=== PATIENT | female | born 1985 | race Caucasian/White ===

== ENCOUNTER → 2018-01-09 14:42 | Outpatient (CLI) | payer OTHER, SELFPAY ==
--- NOTE | 2018-01-09 | DI.MRI.S_ITS ---
PROCEDURE: MR ANKLE RT WO CON INDICATIONS: LATERAL RIGHT ANKLE PAIN AND SWELLING TECHNIQUE: Noncontrast sagittal T1 spin echo and T2 fast spin echo with fat saturation, axial proton density fast spin echo and T2 fast spin echo with fat saturation, coronal T1 spin echo and T2 fast spin echo with fat saturation through the ankle/hindfoot. COMPARISON: None. FINDINGS: Image quality: Excellent. Bones and joints: Increased T2 and decreased T1 signal noted in the subchondral marrow of the lateral margin of the dome of the talus compatible with an osteochondral injury which appears stable in the current examination. No hindfoot coalitions. No osteochondral injuries of the talar dome. Large tibiotalar joint effusion. Medial structures: The posterior tibialis, flexor digitorum longus, and flexor hallucis longus tendons are intact. The posterior tibial neurovascular bundle appears normal within the tarsal tunnel, without extrinsic mass effect. The deep layer (anterior and posterior tibiotalar ligaments) and superficial layer (tibionavicular, tibiospring, and tibiocalcaneal ligaments) of the deltoid ligament appear normal. The spring ligament components (superomedial calcaneonavicular, medioplantar oblique calcaneonavicular, and inferoplantar longitudinal ligaments) are intact. Lateral structures: The anterior talofibular ligament is torn. The calcaneofibular, and posterior talofibular ligaments appear intact. The calcaneofibular ligament is slightly thickened with slightly increased internal signal compatible with a mild sprain. More superiorly, the anterior and posterior tibiofibular ligaments appear intact, as is the intermalleolar ligament. The tibiofibular syndesmosis is normal in width at 2 mm or less. The peroneus longus and brevis tendons demonstrate normal location and morphology. Adjacent bony peroneal tubercle and retrotrochlear prominence are normal in size. The sinus tarsi demonstrates normal fatty signal, without edema, fibrosis, or cyst formation. Visualized sinus tarsi components (cervical ligament, interosseous talocalcaneal ligament, roots of the inferior extensor retinaculum) appear normal. The calcaneonavicular and calcaneocuboid components of the bifurcate ligament appear intact. The dorsal calcaneocuboid ligament appears intact. Anterior structures: The tibialis anterior, extensor hallucis longus, and extensor digitorum longus tendons appear intact. The dorsal talonavicular ligament appears intact. Posterior and plantar structures: Achilles tendon is intact. Medial and lateral bands of the plantar fascia are of normal thickness. No abductor digiti quinti muscle atrophy to suggest Alberts neuropathy. IMPRESSION: 1. Talar dome osteochondral injury which appears stable in the current study. 2. Anterior talofibular ligament tear. 3. Mild calcaneofibular ligament sprain. 4. Large tibiotalar joint effusion. Dictated by: Amy Perez MD, PhD on 01/09/2018 at 17:49 Approved by: Amy Perez MD, PhD on 01/10/2018 at 5:54
== END ==
PROVIDERS: Visit Provider Family Medicine
DX: S93.411A Sprain of calcaneofibular ligament of right ankle, initial encounter (principal); S93.491A Sprain of other ligament of right ankle, initial encounter; M25.571 Pain in right ankle and joints of right foot; M25.471 Effusion, right ankle
CPT/HCPCS: 73721

== ENCOUNTER 2018-06-08 09:19 | Emergency (ER) | payer OTHER, SELFPAY ==
[2018-06-08 09:26] VITALS: BP 138/94; PULSE 93; RESP 99; TEMP 36.6; BMI 24.7
[2018-06-08 11:45] VITALS: BP 122/80; PULSE 72; RESP 14; O2SAT 99
--- NOTE | 2018-06-08 12:35 | ED_ITS ---
HPI - URI/Sore Throat General Chief Complaint: Upper Respiratory Symptoms Stated Complaint: SINUS PRESSURE/PAIN Time Seen by Provider: 06/08/18 11:40 Source: patient Mode of arrival: ambulatory Limitations: no limitations History of Present Illness HPI Narrative: This is a 33-year-old female who comes in with complaint of several weeks of sinus pressure, patient states she has also been having some pain in her right ear as well as fullness. Patient states that she has had some decreased hearing although it is just certain tones. Patient states that she has not had any fevers she is aware of. She feels like her face is sort of puffy in general. She has been having pressure particularly the maxillary area but also frontal and behind the eyes. She did have a CT scan that showed some thickening of the sphenoid sinuses. She was on Augmentin for 7 days prescribed by her primary care last month. She finished that about 2-3 weeks ago. She has continued to have symptoms since then. She states she has had a little bit of nasal congestion but not significant. She always has postnasal drip. She has not had any cough no chest pain, no shortness of breath. No nausea, no vomiting no GI or urinary symptoms. She has an appointment set up with ENT for next week after the holidays. She has had chronic issues with environmental allergies. She also was on Afrin for about a week while she was taking Augmentin. She takes Claritin daily, she has been using Sudafed or 6 with Sudafed in it, she has also done nasal rinses without any resolution of symptoms. Related Data Home Medications Medication Instructions Recorded Confirmed cetirizine-pseudoephedrine 1 tab PO Q12H 06/08/18 06/08/18 [Zyrtec-D] loratadine 10 mg PO DAILY 06/08/18 06/08/18 Previous Rx's Medication Instructions Recorded doxycycline hyclate 100 mg PO BID #14 cap 06/08/18 Allergies Allergy/AdvReac Type Severity Reaction Status Date / Time eucalyptus Allergy Intermediate Gastrointestinal Verified 06/08/18 09:29 Upset levofloxacin [From Levaquin] Allergy Intermediate Rash Verified 06/08/18 09:29 Review of Systems Review of Systems All systems reviewed & are unremarkable except as noted in HPI and below Constitutional Denies fever(s) and Reports headache(s) Eyes Denies change in vision ENT Ears, Nose, Mouth, and Throat: Reports abnormal hearing (right ear), Denies change in voice, Denies dental pain, Reports vertigo (when lays down), Denies ear discharge, Reports otalgia (right ear), Reports facial pain, Reports headache(s), Denies hoarseness, Reports nasal congestion, Reports post nasal drip, Reports sinus pain and Reports sinus pressure Cardiovascular Denies chest pain and Denies dyspnea Respiratory Denies cough and Denies dyspnea Gastrointestinal Gastrointestinal: Denies nausea and Denies vomiting Integumentary/Breasts Reports erythema and Denies rash Neurologic Reports abnormal hearing (right ear), Reports vertigo (when lays down) and Reports headache(s) [facility] Social History Smoking Status: Never smoker Exam Narrative Exam Narrative: GEN: well nourished, well appearing female, alert and oriented x 3, patient appears to be in mild distress. HEENT: Atraumatic, pupils are equal round reactive to light, extraocular movements are intact, nares are clear, right TM shows opacification with fluid, there is no erythema, patient states she has some mild pain with touch of the ear. Left TM shows very minimal fluid, no bulge, no erythema. conjunctival pallor. Throat is clear without any exudates, erythema, tonsillar enlargement or uvular deviation, patient does have some cobblestoning consistent with postnasal drip. No lymphadenopathy noted. Patient does not have any tenderness with palpation of the sinuses. She does look sort of puffy generalized in her face but does not have any swelling of the face that is localized, no fluctuance , no abscesses. HEART: Regular rate and rhythm without murmur, clicks, rubs. LUNGS:Lungs clear to auscultation, no wheezes, rales, crackles, chest moves symmetrically ABD:bowel sounds normal, soft, non-tender, no guarding, rebound, rigidity, no masses noted, no hepatosplenomegaly MSCL: Non-tender, no muscle atrophy, muscles strength 5/5 upper and lower extremities, full range of motion, normal gait NEURO:CN 2-12 intact, sensation normal Initial Vital Signs Initial Vital Signs: Vital Signs Temperature 97.8 F 06/08/18 09:26 Pulse Rate 93 H 06/08/18 09:26 Respiratory Rate 99 H 06/08/18 09:26 Blood Pressure 138/94 H 06/08/18 09:26 Course Vital Signs - 8 hr 06/08/18 09:26 06/08/18 11:45 Temperature 97.8 F Pulse Rate 93 H 72 Respiratory Rate 99 H 14 Blood Pressure 138/94 H Blood Pressure [Left Arm] 122/80 Pulse Oximetry 99 MDM - URI/Sore Throat MDM Narrative Medical decision making narrative: Patient did have a CT that did show some changes to the sphenoid sinus with thickening, this was an outpatient CT scan done about a month ago. She was on Augmentin although not for the typical full course of 10-14 days. She has not had fevers but is not having any improvement after several weeks. She has been doing the appropriate measures with antihistamines, decongestants, nasal rinses and Flonase. She has follow-up with ENT but not for another week and a half. I discussed will give her prescription for antibiotics over the holidays but did recommend trying stronger antihistamine such as Benadryl. She also did use Afrin for about a week and we discussed that people often get rebound congestion which may be part of the issue. This will be something that takes time to resolve. Discharge Plan Departure Patient Disposition: Home Clinical Impression: Sinusitis Discharge Date/Time: 06/08/18 12:14 Interventions: ED Discharge Assessment Last Done: 06/08/18 12:13 Instructions: DI for Sinusitis Activity Restrictions/Additional Instructions: Follow up at your appointment with ENT next week. Continue claritin daily, flonase and decongestants such as psuedofed. You may use benadryl 1-2 tabs every 8 hours instead of claritin for antihistamine. Do not use Afrin until cleared by ENT (you should not use more than 48 hours in a row or you will get rebound congestion). Take medications as prescribed. Return to ER for fevers greater than 100.4F, new swelling of the face, new redness, sudden decrease in hearing, vision changes, sudden severe headaches or other new or concerning symptoms. Prescriptions: New doxycycline hyclate 100 mg capsule 100 mg PO BID Qty: 14 RF: 0 No Action cetirizine-pseudoephedrine [Zyrtec-D] 5-120 mg Tablet Extended Release 12 Hr 1 tab PO Q12H RF: 0 loratadine 10 mg tablet 10 mg PO DAILY RF: 0
== END 2018-06-08 12:14 | disposition home or self-care (01) ==
PROVIDERS: Emergency Provider Emergency Medicine
DX: J32.9 Chronic sinusitis, unspecified (principal)
CPT/HCPCS: 99282

== ENCOUNTER 2018-10-10 12:23 | Emergency (ER) | payer OTHER, SELFPAY ==
[2018-10-10 12:30] VITALS: BP 127/79; PULSE 79; RESP 16; TEMP 36.6; O2SAT 100; BMI 23.9
--- NOTE | 2018-10-10 12:38 | ED_ITS ---
HPI - Abdominal Pain <ELIS Garg-BC - Last Filed: 10/10/18 15:27> General Chief Complaint: Abdominal Pain Stated Complaint: pain on right side Time Seen by Provider: 10/10/18 12:28 Source: patient Mode of arrival: ambulatory Limitations: no limitations History of Present Illness HPI narrative: The patient is a 33-year-old female nonsmoker with history of seasonal allergies who presents with a chief complaint of right side pain for 3 days. She states she thought she pulled a muscle, but then the pain started radiating around to the right side of her abdomen. She denies any objective dysuria urgency or frequency but does complain of some discomfort after she urinates. She denies any fevers chills nausea vomiting or diarrhea. Last bowel movement was yesterday. She has not taken anything for the pain or let her primary care physician know about her pain. she does complain of overall malaise and not feeling well, lack of appetite. She denies any vaginal discharge or irregular vaginal bleeding. She denies possibility of does not have any sexually transmitted infection concerns. She has not taken anything for pain or discomfort today. Related Data Home Medications Medication Instructions Recorded Confirmed amitriptyline 25 mg PO DAILY 10/10/18 drospirenone-ethinyl estradiol 1 tab PO DAILY 10/10/18 10/10/18 [Marta (28)] loratadine 10 mg PO DAILY 10/10/18 10/10/18 Allergies Allergy/AdvReac Type Severity Reaction Status Date / Time eucalyptus Allergy Intermediate Gastrointestinal Verified 06/08/18 09:29 Upset levofloxacin [From Levaquin] Allergy Intermediate Rash Verified 06/08/18 09:29 Review of Systems <MIKEY Garg - Last Filed: 10/10/18 15:27> Review of Systems GENERAL: Denies chills, fatigue, malaise, fever, sweats. HEENT: Denies sinus pain, ear pain, sore throat, difficulty swallowing, dizziness. RESPIRATORY: Denies dyspnea, cough, wheezing, hemoptysis, sputum. CARDIOVASCULAR: Denies chest pain, palpitations, orthopnea, edema, GASTROINTESTINAL: See HPI : See HPI MUSCULOSKELETAL: denies weakness, joint pain, or bony pain SKIN: Denies rash, skin lesions, or other NEUROLOGIC: Denies weakness, headache, numbness, change in speech, confusion, seizures, incoordination. PSYCHIATRIC: No concerning psychosocial issues. 12 point review of systems is negative except for those stated above PFSH <SARIAH Garg - Last Filed: 10/10/18 15:27> Medical History (Updated 10/10/18 @ 14:38 by SARIAH Garg) Seasonal allergies (Acute) Social History Smoking Status: Never smoker Social History Smoking Status: Never smoker Exam <SARIAH Garg - Last Filed: 10/10/18 15:27> Narrative Exam Narrative: GENERAL: This is a well-nourished, well-developed patient, in no acute distress HEAD: Atraumatic. Normocephalic. No temporal or scalp tenderness. EYES: Pupils equal round and reactive. Extraocular motions intact. No scleral icterus. No injection or drainage. ENT: Nose without bleeding, purulent drainage or septal hematoma. Throat without erythema, tonsillar hypertrophy or exudate. Uvula midline. Airway patent. NECK: Trachea midline. No JVD or lymphadenopathy. Supple, nontender, no meningeal signs. CARDIOVASCULAR: Regular rate and rhythm without murmurs, gallops, or rubs. RESPIRATORY: Clear to auscultation. Breath sounds equal bilaterally. No wheezes, rales, or rhonchi. No cough. No increased respiratory effort. No accessory muscle use. GASTROINTESTINAL: Abdomen soft, nondistended. No hepato-splenomegaly, or pal pable masses. No guarding. active bowel sounds all 4 quadrants. Pain to palpation palpation of right quadrants EXTREMITIES: No clubbing, cyanosis, or edema. No joint tenderness, effusion, or edema noted. BACK: Nontender without deformity or crepitance. No flank tenderness. no CVA tenderness bilaterally. NEURO: AOx3. SKIN: No rash or erythema. Initial Vital Signs Initial Vital Signs: Vital Signs Temperature 97.8 F 10/10/18 12:30 Pulse Rate 79 10/10/18 12:30 Respiratory Rate 16 10/10/18 12:30 Blood Pressure 127/79 10/10/18 12:30 Pulse Oximetry 100 10/10/18 12:30 <Ivy Fuentes DO - Last Filed: 10/13/18 12:53> Initial Vital Signs Initial Vital Signs: Vital Signs Temperature 97.8 F 10/10/18 12:30 Pulse Rate 79 10/10/18 12:30 Respiratory Rate 16 10/10/18 12:30 Blood Pressure 127/79 10/10/18 12:30 Pulse Oximetry 100 10/10/18 12:30 Course <SARIAH Garg - Last Filed: 10/10/18 15:27> Orders Ordered: Discontinued Medications Sodium Chloride (Normal Saline 0.9%) 1,000 mls @ 1,000 mls/hr IV BOLUS ONE Stop: 10/10/18 14:04 Last Infusion: 10/10/18 15:00 Dose: 0 mls/hr Admin: 10/10/18 13:55 Dose: 1,000 mls/hr Ketorolac Tromethamine (Toradol) 30 mg IV NOW ONE Stop: 10/10/18 14:31 Last Admin: 10/10/18 14:34 Dose: 30 mg Vital Signs - 8 hr 10/10/18 12:30 10/10/18 14:31 Temperature 97.8 F Pulse Rate 79 59 L Respiratory Rate 16 16 Blood Pressure 127/79 Blood Pressure [Left Arm] 107/67 Pulse Oximetry 100 100 <Ivy Fuentes DO - Last Filed: 10/13/18 12:53> Orders Ordered: Discontinued Medications Sodium Chloride (Normal Saline 0.9%) 1,000 mls @ 1,000 mls/hr IV BOLUS ONE Stop: 10/10/18 14:04 Last Infusion: 10/10/18 15:00 Dose: 0 mls/hr Admin: 10/10/18 13:55 Dose: 1,000 mls/hr Ketorolac Tromethamine (Toradol) 30 mg IV NOW ONE Stop: 10/10/18 14:31 Last Admin: 10/10/18 14:34 Dose: 30 mg Vital Signs - 8 hr 10/10/18 12:30 10/10/18 14:31 Temperature 97.8 F Pulse Rate 79 59 L Respiratory Rate 16 16 Blood Pressure 127/79 Blood Pressure [Left Arm] 107/67 Pulse Oximetry 100 100 MDM - Abdominal Pain <SARIAH Garg - Last Filed: 10/10/18 15:27> Lab Data Result diagrams: 10/10/18 13:05 10/10/18 13:05 Lab Results 10/10/18 10/10/18 10/10/18 Range/Units 12:45 13:05 13:05 WBC 5.1 (4.5-11.0) X10^3/uL RBC 4.62 (4.0-5.2) X10^6/uL Hgb 13.0 (12.0-16.0) g/dL Hct 37.7 (36-46) % MCV 81.6 (80-100) fL MCH 28.2 (26-34) PG MCHC 34.6 (30-36) % RDW 13.7 (11.6-14.8) % Plt Count 220 (150-400) X10^3/uL Neut % (Auto) 61.9 (50-75) % Lymph % (Auto) 32.1 (25-40) % [place] % (Auto) 5.3 (3-14) % Eos % (Auto) 0.2 L (2-4) % Baso % (Auto) 0.5 (0-2) % Neut # (Auto) 3200 (1016-4106) /uL Lymph # (Auto) 1600 (1062-3391) /uL [place] # (Auto) 300 (0-900) /uL Eos # (Auto) 0 (0-450) /uL Baso # (Auto) 0 (0-100) /uL Sodium 139 (137-145) mmol/L Potassium 4.0 (3.4-5.1) mmol/L Chloride 103 (98-107) mmol/L Carbon Dioxide 27 (22-32) mmol/L BUN 13 (7-17) mg/dL Creatinine 0.80 (0.52-1.04) mg/dL Estimated GFR > 60.0 (>60) mL/min BUN/Creatinine Ratio 16.3 (6-22) Glucose 101 H (70-100) mg/dL Calcium 9.5 (8.4-10.2) mg/dL Total Bilirubin 0.3 (0.2-1.3) mg/dL AST 22 (14-36) IU/L ALT 18 (9-52) IU/L Alkaline Phosphatase 46 (38-126) U/L Total Protein 7.7 (6.3-8.2) g/dL Albumin 4.5 (3.5-5.0) g/dL Globulin 3.2 (1.7-4.1) g/dL Albumin/Globulin Ratio 1.4 (1.0-2.8) Amylase 77 (30-110) U/L Lipase 111 (23-300) U/L Urine RBC 0-1/hpf (0-5/HPF) Urine WBC 0-1/hpf (0-5/HPF) Ur Squamous Epith Cells 0-1 /hpf (0-5/HPF) Urine Bacteria None seen (None) Urine Mucus 1+ H (Negative) Ur Culture Indicated? Cult not indicated Point of care testing: Point of Care Testing Test Results Negative Urine Dip Bedside Urine Glucose Negative Bedside Urine Bilirubin - Negative Bedside Urine Ketone - Negative Urine Specific [place] 1.025 Bedside Urine Occult Blood - Negative Bedside Urine pH 6.0 Bedside Urine Protein +/- 15 Bedside Urine Urobilinogen - Negative Bedside Urine Nitrite - Negative Bedside Urine Leukocytes - Negative Esterase Imaging Data US - abdomen: Radiologist's impression: [place] [address] Ultrasound Report Signed Patient: Zina Neely EMR#: [id number] : 1985Acct:[id number] Age/Sex: 33 / FDate of Service: 10/10/18 Loc: ED Accession Number: [id number] Procedure: US pelvic complete Ordering Provider: Ayana Salinas [facility]- PROCEDURE: US PELVIC COMPLETE INDICATIONS: RIGHT LOWER QUADRANT PAIN TECHNIQUE: Real-time scanning was performed of the pelvic organs, with image documentation. Additional endovaginal scanning was necessary due to incomplete visualization of the adnexal and endometrial structures by transabdominal scanning. COMPARISON: None. FINDINGS: Transabdominal scanning: Limited scanning through the kidneys shows no hydronephrosis. No pathologic free abdominal or pelvic fluid. Endovaginal scanning: Uterus: Uterus is normal in size at 8.6 x 2.7 x 4.4 cm. The endometrium measures 4 mm in combined thickness. Endometrial has a trilaminar appearance. No focal m yometrial lesions are evident. The cervix is within normal limits. Ovaries: Both ovaries are normal in size without cystic or solid mass. Subcentimeter follicles are present bilaterally. The right ovary measures 3.2 x 1.6 x 1.9 cm. The left ovary measures 2.8 x 1.7 x 1.9 cm. IMPRESSION: Uterus and ovaries are within normal limits. Dictated by: Dexter Santana M.D. on 10/10/2018 at 12:48 Approved by: Dexter Santana M.D. on 10/10/2018 at 12:50 [facility] Narrative Medical decision making narrative: The patient is a 33-year-old female who presents with right flank and abdominal pain. she has a normal UA, normal CBC, normal CMP lipase and amylase. She does not have an acute exam. Her pelvic ult rasound came back within normal limits with no evidence of ovarian cyst or torsion. We did discuss the possibility of appendicitis, but the patient is afebrile, not nauseous and does not have an elevated white blood cell count. She has been tolerating oral intake this morning. I discussed at length follow up with primary care provider as well as return precautions of fever, inability keep down fluids etc. Patient stated understanding of return precautions and states understanding of following up with primary care provider. Patient has no questions or concerns upon discharge. She was given some Toradol in the emergency department for pain, but declined anything else. <Ivy Fuentes, DO - Last Filed: 10/13/18 12:53> Lab Data Lab Results 10/10/18 10/10/18 10/10/18 Range/Units 12:45 13:05 13:05 WBC 5.1 (4.5-11.0) X10^3/uL RBC 4.62 (4.0-5.2) X10^6/uL Hgb 13.0 (12.0-16.0) g/dL Hct 37.7 (36-46) % MCV 81.6 (80-100) fL MCH 28.2 (26-34) PG MCHC 34.6 (30-36) % RDW 13.7 (11.6-14.8) % Plt Count 220 (150-400) X10^3/uL Neut % (Auto) 61.9 (50-75) % Lymph % (Auto) 32.1 (25-40) % [place] % (Auto) 5.3 (3-14) % Eos % (Auto) 0.2 L (2-4) % Baso % (Auto) 0.5 (0-2) % Neut # (Auto) 3200 (4736-0313) /uL Lymph # (Auto) 1600 (8860-2667) /uL [place] # (Auto) 300 (0-900) /uL Eos # (Auto) 0 (0-450) /uL Baso # (Auto) 0 (0-100) /uL Sodium 139 (137-145) mmol/L Potassium 4.0 (3.4-5.1) mmol/L Chloride 103 (98-107) mmol/L Carbon Dioxide 27 (22-32) mmol/L BUN 13 (7-17) mg/dL Creatinine 0.80 (0.52-1.04) mg/dL Estimated GFR > 60.0 (>60) mL/min BUN/Creatinine Ratio 16.3 (6-22) Glucose 101 H (70-100) mg/dL Calcium 9.5 (8.4-10.2) mg/dL Total Bilirubin 0.3 (0.2-1.3) mg/dL AST 22 (14-36) IU/L ALT 18 (9-52) IU/L Alkaline Phosphatase 46 (38-126) U/L Total Protein 7.7 (6.3-8.2) g/dL Albumin 4.5 (3.5-5.0) g/dL Globulin 3.2 (1.7-4.1) g/dL Albumin/Globulin Ratio 1.4 (1.0-2.8) Amylase 77 (30-110) U/L Lipase 111 (23-300) U/L Urine RBC 0-1/hpf (0-5/HPF) Urine WBC 0-1/hpf (0-5/HPF) Ur Squamous Epith Cells 0-1 /hpf (0-5/HPF) Urine Bacteria None seen (None) Urine Mucus 1+ H (Negative) Ur Culture Indicated? Cult not indicated Point of care testing: Point of Care Testing Test Results Negative Urine Dip Bedside Urine Glucose Negative Bedside Urine Bilirubin - Negative Bedside Urine Ketone - Negative Urine Specific [place] 1.025 Bedside Urine Occult Blood - Negative Bedside Urine pH 6.0 Bedside Urine Protein +/- 15 Bedside Urine Urobilinogen - Negative Bedside Urine Nitrite - Negative Bedside Urine Leukocytes - Negative Esterase Discharge Plan Departure Patient Disposition: Home Clinical Impression: Flank pain Abdominal pain Qualifiers: Abdominal location: generalized Qualified Code(s): R10.84 - Generalized abdominal pain Discharge Date/Time: 10/10/18 15:00 Interventions: ED Discharge Assessment Last Done: 10/10/18 15:00 Activity Restrictions/Additional Instructions: All of your lab work and urinalysis came back well today, as did your pelvic ultrasound. There is no evidence of ovarian cysts or torsion on her ultrasound. You do not have any elevated white blood cell count or fever, which can indicate appendicitis. Please try [id number] remedies including [id number] medications as needed and able and heat. Please do not take any ibuprofen for 6-8 hours after the Toradol injection in the emergency department. Please follow up with primary care provider soon as possible. Come back to emergency department for sudden worsening uncontrolled pain, inability keep down fluids, or fever with abdominal pain. come back to the emergency department for any acute concerns. Prescriptions: No Action amitriptyline 25 mg tablet 25 mg PO DAILY RF: 0 drospirenone-ethinyl estradiol [Marta (28)] 3-0.03 mg tablet 1 tab PO DAILY RF: 0 loratadine 10 mg tablet 10 mg PO DAILY RF: 0 Referrals: Carolyn Peres DO [Primary Care Provider] - <Ivy Fuentes DO - Last Filed: 10/13/18 12:53> Cosign ED Attending Linda Attestation: I was immediately available in the department for consultation. Documentation has been reviewed. I agree with assessment and plan.
--- NOTE | 2018-10-10 13:00 | DI.US.S_ITS ---
PROCEDURE: US PELVIC COMPLETE INDICATIONS: RIGHT LOWER QUADRANT PAIN TECHNIQUE: Real-time scanning was performed of the pelvic organs, with image documentation. Additional endovaginal scanning was necessary due to incomplete visualization of the adnexal and endometrial structures by transabdominal scanning. COMPARISON: None. FINDINGS: Transabdominal scanning: Limited scanning through the kidneys shows no hydronephrosis. No pathologic free abdominal or pelvic fluid. Endovaginal scanning: Uterus: Uterus is normal in size at 8.6 x 2.7 x 4.4 cm. The endometrium measures 4 mm in combined thickness. Endometrial has a trilaminar appearance. No focal myometrial lesions are evident. The cervix is within normal limits. Ovaries: Both ovaries are normal in size without cystic or solid mass. Subcentimeter follicles are present bilaterally. The right ovary measures 3.2 x 1.6 x 1.9 cm. The left ovary measures 2.8 x 1.7 x 1.9 cm. IMPRESSION: Uterus and ovaries are within normal limits. Dictated by: Dexter Santana M.D. on 10/10/2018 at 12:48 Approved by: Dexter Santana M.D. on 10/10/2018 at 12:50
[2018-10-10 13:01] LABS: Bacteria Urine None Seen
[2018-10-10 13:12] LABS: Add Manual Diff / Slide Review NO; Basophils Absolute Auto 0 /uL (0-100); Basophils Percent Auto 0.5 % (0-2); Eosinophils Absolute Auto 0 /uL (0-450); Eosinophils Percent Auto 0.2 % (2-4); Hematocrit 37.7 % (36-46); Lymphocytes Absolute Auto 1600 /uL (1100-4500); Lymphocytes Percent Auto 32.1 % (25-40); Mean Corpuscular HGB Conc 34.6 % (30-36); Mean Corpuscular Hemoglobin 28.2 PG (26-34); Mean Corpuscular Volume 81.6 fL (80-100); Monocytes Absolute Auto 300 /uL (0-900); Monocytes Percent Auto 5.3 % (3-14); Neutrophils Absolute Auto 3200 /uL (1500-7000); Neutrophils Percent Auto 61.9 % (50-75); Platelet Count 220 X10^3/uL (150-400); Red Blood Cell Count 4.62 X10^6/uL (4.0-5.2); Red Cell Distribution Width 13.7 % (11.6-14.8); White Blood Cell Count 5.1 X10^3/uL (4.5-11.0)
[2018-10-10 13:15] LABS: RBC Urine 0-1/HPF (0-5/HPF); Squamous Epithelial Cell Urine 0-1 /HPF (0-5/HPF); WBC Urine 0-1/HPF (0-5/HPF)
[2018-10-10 13:16] LABS: Culture Indicated Urine Cult Not Indicated; Mucus Urine 1+ (Negative)
[2018-10-10 13:34] LABS: Alanine Aminotransferase 18 IU/L (9-52); Albumin 4.5 g/dL (3.5-5.0); Albumin Globulin Ratio 1.4 (1.0-2.8); Alkaline Phosphatase 46 U/L (38-126); Amylase 77 U/L (30-110); Aspartate Aminotransferase 22 IU/L (14-36); BUN Creatinine Ratio 16.3 (6-22); Bilirubin Total 0.3 mg/dL (0.2-1.3); Blood Urea Nitrogen 13 mg/dL (7-17); Calcium 9.5 mg/dL (8.4-10.2); Carbon Dioxide 27 mmol/L (22-32); Chloride 103 mmol/L (98-107); Estimated Glomerular Filt Rate > 60.0 mL/min (>60); Globulin 3.2 g/dL (1.7-4.1); Glucose 101 mg/dL (70-100); HEMOLYSIS < 15 (0-50); Lipase 111 U/L (23-300); Sodium 139 mmol/L (137-145); Total Protein 7.7 g/dL (6.3-8.2)
[2018-10-10] MEDS: SODIUM CHLORIDE 0.9% 1,000 ML 1000 ML IV (13:55)
[2018-10-10 14:31] VITALS: BP 107/67; PULSE 59; RESP 16; O2SAT 100
[2018-10-10] MEDS: KETOROLAC 60 MG/2 ML VIAL 30 MG IV (14:34)
== END 2018-10-10 15:00 | disposition home or self-care (01) ==
PROVIDERS: Emergency Provider Nurse Practitioner Family; PCP Family Medicine
DX: R10.9 Unspecified abdominal pain (principal); R10.84 Generalized abdominal pain
CPT/HCPCS: 36591; 76830; 76856; 80053; 81003; 81015; 81025; 82150; 83690; 85025; 96361; 96374; 99283; 99284; J1885

== ENCOUNTER 2019-03-08 16:36 | Emergency (ER) | payer OTHER, SELFPAY ==
[2019-03-08 16:42] VITALS: BP 130/82; PULSE 86; RESP 16; TEMP 37.2; O2SAT 100; BMI 25.4
[2019-03-08 16:58] LABS: Add Manual Diff / Slide Review NO; Basophils Absolute Auto 0 /uL (0-100); Basophils Percent Auto 0.6 % (0-2); Eosinophils Absolute Auto 0 /uL (0-450); Eosinophils Percent Auto 0.3 % (2-4); Hematocrit 39.5 % (36-46); Hemoglobin 13.7 g/dL (12.0-16.0); Lymphocytes Absolute Auto 2200 /uL (1100-4500); Lymphocytes Percent Auto 30.3 % (25-40); Mean Corpuscular HGB Conc 34.7 % (30-36); Mean Corpuscular Hemoglobin 28.1 PG (26-34); Monocytes Absolute Auto 400 /uL (0-900); Monocytes Percent Auto 6.3 % (3-14); Neutrophils Absolute Auto 4500 /uL (1500-7000); Neutrophils Percent Auto 62.5 % (50-75); Platelet Count 240 X10^3/uL (150-400); Red Blood Cell Count 4.88 X10^6/uL (4.0-5.2); Red Cell Distribution Width 12.8 % (11.6-14.8); White Blood Cell Count 7.1 X10^3/uL (4.5-11.0)
[2019-03-08 17:08] LABS: PTT Partial Thromboplastin Tim 32 SECONDS (26.4-36.2)
[2019-03-08 17:09] LABS: Albumin 4.5 g/dL (3.5-5.0); Albumin Globulin Ratio 1.2 (1.0-2.8); Alkaline Phosphatase 52 U/L (38-126); Aspartate Aminotransferase 24 IU/L (14-36); Bilirubin Total 0.4 mg/dL (0.2-1.3); Blood Urea Nitrogen 17 mg/dL (7-17); Calcium 9.8 mg/dL (8.4-10.2); Carbon Dioxide 26 mmol/L (22-32); Chloride 101 mmol/L (98-107); Estimated Glomerular Filt Rate > 60.0 mL/min (>60); Globulin 3.7 g/dL (1.7-4.1); Glucose 98 mg/dL (70-100); HEMOLYSIS < 15 (0-50); Lipase 198 U/L (23-300); Potassium 4.2 mmol/L (3.4-5.1); Sodium 138 mmol/L (137-145); Total Protein 8.2 g/dL (6.3-8.2)
[2019-03-08 17:18] LABS: Alanine Aminotransferase 10 IU/L (9-52)
--- NOTE | 2019-03-08 18:42 | ED_ITS ---
HPI - Abdominal Pain General Chief Complaint: Abdominal Pain Stated Complaint: lwr right abdominal pain with vomiting Time Seen by Provider: 03/08/19 18:41 Source: patient Mode of arrival: Ambulatory Limitations: no limitations History of Present Illness HPI narrative: 33-year-old female here for evaluation of right lower quadrant abdominal pain. Patient states that has been going on for the past 12 hours. No urinary symptoms. No vaginal bleeding. Did have some diarrhea earlier today but other than that no other GI symptoms. No vaginal bleeding. No fevers. No prior abdominal surgeries. States that her next menstrual cycle should start sometime this week Related Data Home Medications Medication Instructions Recorded Confirmed amitriptyline 25 mg PO DAILY 10/10/18 drospirenone-ethinyl estradiol 1 tab PO DAILY 10/10/18 03/08/19 [Marta (28)] loratadine 10 mg PO DAILY 10/10/18 03/08/19 omeprazole 20 mg PO BID 03/08/19 03/08/19 sucralfate 1 g PO QID 03/08/19 03/08/19 Allergies Allergy/AdvReac Type Severity Reaction Status Date / Time eucalyptus Allergy Intermediate Gastrointestinal Verified 06/08/18 09:29 Upset levofloxacin [From Levaquin] Allergy Intermediate Rash Verified 06/08/18 09:29 Review of Systems Constitutional Constitutional: Denies fatigue and Denies fever(s) ENT Ears, Nose, Mouth, and Throat: Denies odynophagia Cardiovascular Cardiovascular: Denies chest pain, Denies palpitations and Denies dyspnea Respiratory Respiratory: Denies dyspnea Gastrointestinal Gastrointestinal: Reports abdominal pain, Reports diarrhea, Denies nausea and Denies odynophagia Genitourinary Genitourinary: Denies dysuria and Denies vaginal discharge Musculoskeletal Musculoskeletal: Denies myalgias and Denies arthralgias Integumentary/Breasts Skin/Breast: Denies lesions and Denies rash Neurologic Neurologic: Denies behavioral changes Psychiatric Psychiatric: Denies behavioral changes Endocrine Endocrine: Denies fatigue and Denies palpitations Hematologic/Lymphatic Hematologic/Lymphatic: Denies easy bleeding and Denies easy bruising Allergic/Immunologic Allergic/Immunologic: Denies urticaria PFSH Medical History Seasonal allergies (Acute) Social History Smoking Status: Never smoker Social History Smoking Status: Never smoker Exam Initial Vital Signs Initial Vital Signs: Vital Signs Temperature 98.9 F 03/08/19 16:42 Pulse Rate 86 03/08/19 16:42 Respiratory Rate 16 03/08/19 16:42 Blood Pressure 130/82 03/08/19 16:42 Pulse Oximetry 100 03/08/19 16:42 Const General: cooperative, healthy appearing, comfortable, well developed, well groomed and No acute distress Orientation: alert and awake HENOK Head: normal to inspection and normocephalic Resp Effort & Inspection: normal respiratory effort Auscultation: clear to auscultation bilaterally Cardio Rate: regular rate Rhythm: regular rhythm GI Inspection: non-distended Palpation: soft, No firm and tender (Right lower quadrant) Back/Spine/Pelvis Back: No CVA tenderness Skin Lesions: no lesions Rashes: no rashes Neuro General: alert and awake Cognition: normal cognition Speech: speech normal Gait: normal gait Extrem General: normal to inspection and capillary refill normal Psych Appearance: grossly normal and well kempt Course Orders Ordered: ED Orders 03/08/19 18:52 CT abdomen pelvis w con Stat 03/08/19 20:31 US pelvic complete Stat Discontinued Medications Sodium Chloride (Normal Saline 0.9%) 1,000 mls @ 1,000 mls/hr IV BOLUS ONE Stop: 03/08/19 19:51 Last Infusion: 03/08/19 22:55 Dose: 0 mls/hr Documented by: Admin: 03/08/19 20:25 Dose: 1,000 mls/hr Documented by: BTONER Vital Signs Vital signs: Vital Signs - 8 hr 03/08/19 20:29 03/08/19 22:45 Pulse Rate 85 64 Respiratory Rate 16 16 Blood Pressure 112/74 Blood Pressure [Left Arm] 120/79 Pulse Oximetry 100 98 MDM - Abdominal Pain Lab Data Attestation: I reviewed the patient's lab results. Result diagrams: 03/08/19 16:55 03/08/19 16:55 Labs: Lab Results 03/08/19 03/08/19 03/08/19 Range/Units 16:50 16:55 16:55 WBC 7.1 (4.5-11.0) X10^3/uL RBC 4.88 (4.0-5.2) X10^6/uL Hgb 13.7 (12.0-16.0) g/dL Hct 39.5 (36-46) % MCV 81.0 (80-100) fL MCH 28.1 (26-34) PG MCHC 34.7 (30-36) % RDW 12.8 (11.6-14.8) % Plt Count 240 (150-400) X10^3/uL Neut % (Auto) 62.5 (50-75) % Lymph % (Auto) 30.3 (25-40) % [place] % (Auto) 6.3 (3-14) % Eos % (Auto) 0.3 L (2-4) % Baso % (Auto) 0.6 (0-2) % Neut # (Auto) 4500 (1370-7753) /uL Lymph # (Auto) 2200 (0728-9191) /uL [place] # (Auto) 400 (0-900) /uL Eos # (Auto) 0 (0-450) /uL Baso # (Auto) 0 (0-100) /uL PT 11.0 (10.1-12.7) SECONDS INR 1.0 (0.9-1.3) APTT 32 (26.4-36.2) SECONDS Sodium (137-145) mmol/L Potassium (3.4-5.1) mmol/L Chloride (98-107) mmol/L Carbon Dioxide (22-32) mmol/L BUN (7-17) mg/dL Creatinine (0.52-1.04) mg/dL Estimated GFR (>60) mL/min BUN/Creatinine Ratio (6-22) Glucose (70-100) mg/dL Calcium (8.4-10.2) mg/dL Total Bilirubin (0.2-1.3) mg/dL AST (14-36) IU/L ALT (9-52) IU/L Alkaline Phosphatase (38-126) U/L Total Protein (6.3-8.2) g/dL Albumin (3.5-5.0) g/dL Globulin (1.7-4.1) g/dL Albumin/Globulin Ratio (1.0-2.8) Lipase (23-300) U/L Serum , Qual Negative (Negative) 03/08/19 Range/Units 16:55 WBC (4.5-11.0) X10^3/uL RBC (4.0-5.2) X10^6/uL Hgb (12.0-16.0) g/dL Hct (36-46) % MCV (80-100) fL MCH (26-34) PG MCHC (30-36) % RDW (11.6-14.8) % Plt Count (150-400) X10^3/uL Neut % (Auto) (50-75) % Lymph % (Auto) (25-40) % [place] % (Auto) (3-14) % Eos % (Auto) (2-4) % Baso % (Auto) (0-2) % Neut # (Auto) (3745-7768) /uL Lymph # (Auto) (3666-7886) /uL [place] # (Auto) (0-900) /uL Eos # (Auto) (0-450) /uL Baso # (Auto) (0-100) /uL PT (10.1-12.7) SECONDS INR (0.9-1.3) APTT (26.4-36.2) SECONDS Sodium 138 (137-145) mmol/L Potassium 4.2 (3.4-5.1) mmol/L Chloride 101 (98-107) mmol/L Carbon Dioxide 26 (22-32) mmol/L BUN 17 (7-17) mg/dL Creatinine 1.00 (0.52-1.04) mg/dL Estimated GFR > 60.0 (>60) mL/min BUN/Creatinine Ratio 17.0 (6-22) Glucose 98 (70-100) mg/dL Calcium 9.8 (8.4-10.2) mg/dL Total Bilirubin 0.4 (0.2-1.3) mg/dL AST 24 (14-36) IU/L ALT 10 (9-52) IU/L Alkaline Phosphatase 52 (38-126) U/L Total Protein 8.2 (6.3-8.2) g/dL Albumin 4.5 (3.5-5.0) g/dL Globulin 3.7 (1.7-4.1) g/dL Albumin/Globulin Ratio 1.2 (1.0-2.8) Lipase 198 (23-300) U/L Serum , Qual (Negative) Point of care testing: Urine Dip Bedside Urine Glucose Negative Bedside Urine Bilirubin - Negative Bedside Urine Ketone - Negative Urine Specific [place] 1.005 Bedside Urine Occult Blood +/- Bedside Urine pH 6.5 Bedside Urine Protein +/- 15 Bedside Urine Urobilinogen - Negative Bedside Urine Nitrite - Negative Bedside Urine Leukocytes - Negative Esterase Imaging Data CT scan - abdomen: Radiologist's impression: [address] [address] [address] Scan Report Signed Patient: Zina Neely EMR#: [id number] : 1985Acct:[id number] Age/Sex: 33 / FDate of Service: 03/08/19 Loc: ED Accession Number: [id number] Procedure: CT abdomen pelvis w con Ordering Provider: Yair Reynolds D.O. PROCEDURE: CT ABDOMEN PELVIS W CON INDICATIONS: Right-sided abdominal pain TECHNIQUE: After the administration of intravenous contrast, 5 mm thick sections acquired from the diaphragm to the symphysis. 5 mm coronal and sagittal reformats were acquired. For radiation dose reduction, the following was used: automated exposure control, adjustment of mA and/or kV according to patient size. COMPARISON: [facility], , PELVIC COMPLETE, 10/10/2018, 13:11. FINDINGS: Image quality: Excellent. ABDOMEN: Lung bases: Lung bases are clear. Heart size is normal. Solid organs: Liver is normal in size and enhancement. Incidental note is made of focal fatty infiltration adjacent to the falciform ligament, which is not regarded to be pathologic. Gallbladder wall does not appear thickened. Biliary system is non dilated. Pancreas enhances normally. Spleen is normal in size and enhancement. No adre nal nodules. Kidneys demonstrate normal size and enhancement, without hydronephrosis. Peritoneum and bowel: In this patient with this given history, scrutiny is given to the appendix. A normal appendix can be seen just superior to the bladder, as on series 6 image 46. No focal right lower quadrant inflammatory changes are seen. There is a moderate amount of stool seen within the proximal colon. The remainder of the colon appears decompressed. Bowel loops demonstrate normal wall thickness and caliber. No free fluid or air. Nodes and vessels: No retroperitoneal or mesenteric adenopathy by size criteria. Aorta and inferior vena cava are normal in size. Miscellaneous: No ventral hernias. PELVIS: Genitourinary: Bladder wall thickness is normal. Cystic changes are seen of the adnexal regions, which are considered to be within physiologic limits. Miscellaneous: No inguinal hernias or adenopathy. Bones: No suspicious bony lesions. No vertebral body compression fractures. Mild levoconvex scoliotic curvature is noted. IMPRESSION: Normal appendix. A moderate amount of stool can be seen within the ascending colon. Dictated by: Ochoa Rodriges M.D. on 03/08/2019 at 19:44 Approved by: Ochoa Rodriges M.D. on 03/08/2019 at 19:48 US - abdomen: Radiologist's impression: [address] [address] Ultrasound Report Signed Patient: Zina Neely EMR#: [id number] : 1985Acct:[id number] Age/Sex: 33 / FDate of Service: 03/08/19 Loc: ED Accession Number: [id number] Procedure: US pelvic complete Ordering Provider: Yair Reynolds D.O. PROCEDURE: US PELVIC COMPLETE INDICATIONS: R ADNEXAL PAIN, EVAL FOR OVARIAN PATHOLOGY TECHNIQUE: Real-time scanning was performed of the pelvic organs, with image documentation. Additional endovaginal scanning was necessary due to incomplete visualization of the adnexal and endometrial structures by transabdominal scanning. COMPARISON: [facility], CT, CT ABDOMEN PELVIS W CON, 03/08/2019, 19:09. [facility], US, US PELVIC COMPLETE, 10/10/2018, 13:11. FINDINGS: Transabdominal scanning: Limited scanning through the kidneys shows no hydronephrosis. No pathologic free abdominal or pelvic fluid. Endovaginal scanning: Uterus: Uterus is normal in size at 7.8 x 3.3 by 4 cm. The endometrium measures 3 mm in combined thickness. Ovaries: The right ovary measures 2.3 x 1.2 x 1.3 cm. The left ovary measures 2.7 x 1.6 x 1.7 cm. The ovaries have a normal sonographic appearance. No adnexal masses are seen. IMPRESSION: Normal ovaries. Dictated by: Ochoa Rodriges M.D. on 03/08/2019 at 21:40 Approved by: Ochoa Rodriges M.D. on 03/08/2019 at 21:42 MDM Narrative Medical decision making narrative: Patient with right lower quadrant abdominal tenderness however denied offer for nausea or pain medication. Her CT scan sh ows a normal appendix. No other surgical or abnormal pathology. Ultrasound shows normal ovaries. Urine is not consistent with urinary tract infection. History and physical exam was not consistent with gallbladder disease. No indication of ureteral stones on the CT scan. Unsure the exact etiology of the symptoms however no emergent surgical or infectious etiology was found on the workup today. We will hold on further workup for now. Patient was given return precautions and follow-up instructions. She expressed understanding and agreement with plan. Discharge Plan Departure Patient Disposition: Home Clinical Impression: Abdominal pain Qualifiers: Abdominal location: right lower quadrant Qualified Code(s): R10.31 - Right lower quadrant pain Discharge Date/Time: 03/08/19 22:46 Instructions: Acute Abdominal Pain Activity Restrictions/Additional Instructions: Recommend you take Tylenol and/or ibuprofen for any discomfort. Contact your primary provider for follow-up. Take all of your medication as directed. Return to the emergency department for any new or worsening symptoms Prescriptions: No Action sucralfate 1 gram tablet 1 g PO QID RF: 0 omeprazole 20 mg capsule,delayed release(DR/EC) 20 mg PO BID RF: 0 amitriptyline 25 mg tablet 25 mg PO DAILY RF: 0 drospirenone-ethinyl estradiol [Marta (28)] 3-0.03 mg tablet 1 tab PO DAILY RF: 0 loratadine 10 mg tablet 10 mg PO DAILY RF: 0 Referrals: Carolyn Peres DO [Primary Care Provider] -
--- NOTE | 2019-03-08 18:52 | DI.CT.S_ITS ---
PROCEDURE: CT ABDOMEN PELVIS W CON INDICATIONS: Right-sided abdominal pain TECHNIQUE: After the administration of intravenous contrast, 5 mm thick sections acquired from the diaphragm to the symphysis. 5 mm coronal and sagittal reformats were acquired. For radiation dose reduction, the following was used: automated exposure control, adjustment of mA and/or kV according to patient size. COMPARISON: [facility], , US PELVIC COMPLETE, 10/10/2018, 13:11. FINDINGS: Image quality: Excellent. ABDOMEN: Lung bases: Lung bases are clear. Heart size is normal. Solid organs: Liver is normal in size and enhancement. Incidental note is made of focal fatty infiltration adjacent to the falciform ligament, which is not regarded to be pathologic. Gallbladder wall does not appear thickened. Biliary system is non dilated. Pancreas enhances normally. Spleen is normal in size and enhancement. No adrenal nodules. Kidneys demonstrate normal size and enhancement, without hydronephrosis. Peritoneum and bowel: In this patient with this given history, scrutiny is given to the appendix. A normal appendix can be seen just superior to the bladder, as on series 6 image 46. No focal right lower quadrant inflammatory changes are seen. There is a moderate amount of stool seen within the proximal colon. The remainder of the colon appears decompressed. Bowel loops demonstrate normal wall thickness and caliber. No free fluid or air. Nodes and vessels: No retroperitoneal or mesenteric adenopathy by size criteria. Aorta and inferior vena cava are normal in size. Miscellaneous: No ventral hernias. PELVIS: Genitourinary: Bladder wall thickness is normal. Cystic changes are seen of the adnexal regions, which are considered to be within physiologic limits. Miscellaneous: No inguinal hernias or adenopathy. Bones: No suspicious bony lesions. No vertebral body compression fractures. Mild levoconvex scoliotic curvature is noted. IMPRESSION: Normal appendix. A moderate amount of stool can be seen within the ascending colon. Dictated by: Ochoa Rodriges M.D. on 03/08/2019 at 19:44 Approved by: Ochoa Rodriges M.D. on 03/08/2019 at 19:48
[2019-03-08 19:04] LABS: Pregnancy Test Serum,Qual Negative (Negative)
[2019-03-08] MEDS: SODIUM CHLORIDE 0.9% 1,000 ML 1000 ML IV (20:25)
[2019-03-08 20:29] VITALS: BP 120/79; PULSE 85; RESP 16; O2SAT 100
--- NOTE | 2019-03-08 20:31 | DI.US.S_ITS ---
PROCEDURE: US PELVIC COMPLETE INDICATIONS: R ADNEXAL PAIN, EVAL FOR OVARIAN PATHOLOGY TECHNIQUE: Real-time scanning was performed of the pelvic organs, with image documentation. Additional endovaginal scanning was necessary due to incomplete visualization of the adnexal and endometrial structures by transabdominal scanning. COMPARISON: [facility], CT, CT ABDOMEN PELVIS W CON, 03/08/2019, 19:09. [facility], US, US PELVIC COMPLETE, 10/10/2018, 13:11. FINDINGS: Transabdominal scanning: Limited scanning through the kidneys shows no hydronephrosis. No pathologic free abdominal or pelvic fluid. Endovaginal scanning: Uterus: Uterus is normal in size at 7.8 x 3.3 by 4 cm. The endometrium measures 3 mm in combined thickness. Ovaries: The right ovary measures 2.3 x 1.2 x 1.3 cm. The left ovary measures 2.7 x 1.6 x 1.7 cm. The ovaries have a normal sonographic appearance. No adnexal masses are seen. IMPRESSION: Normal ovaries. Dictated by: Ochoa Rodriges M.D. on 03/08/2019 at 21:40 Approved by: Ochoa Rodriges M.D. on 03/08/2019 at 21:42
[2019-03-08 22:45] VITALS: BP 112/74; PULSE 64; RESP 16; O2SAT 98
== END 2019-03-08 22:46 | disposition home or self-care (01) ==
PROVIDERS: Emergency Medicine; Emergency Provider Emergency Medicine; PCP Family Medicine
DX: R10.31 Right lower quadrant pain (principal)
CPT/HCPCS: 36415; 74177; 76830; 76856; 80053; 81003; 83690; 84703; 85025; 85610; 85730; 96360; 96361; 99283; 99285; Q9967